=== PATIENT | female | born 1945 | race American Indian/Alaskan Native ===

== ENCOUNTER 2018-11-10 06:28 | Day surgery (SDC) | payer MEDICARE ==
[~2018-11-10 06:28] MED LIST: TETRACAINE 0.5% OS PRN
[2018-11-10] MEDS: MYDRIACYL OS SCH ×3 (07:00→07:10)
[2018-11-10] MEDS: AK-Dilate OS SCH ×3 (07:00→07:10)
[2018-11-10] MEDS: VIGAMOX OS SCH ×3 (07:00→07:10)
[2018-11-10] MEDS ORDERED: NACL BACTERIOSTATIC INFILTRATI ONE (07:18)
[2018-11-10] MEDS ORDERED: HumuLIN R IV ONE ×2 (07:29→08:00)
[2018-11-10] MEDS ORDERED: VERSED ONE (08:13)
[2018-11-10] MEDS ORDERED: SUBLIMAZE ONE (08:14)
--- NOTE | 2018-11-10 08:53 | Operative Report ---
Operative Report Operative Report: PATIENT'S NAME: DATE OF : DATE OF SURGERY: 11/10/2018 PREOPERATIVE DIAGNOSIS: Cataract left eye POSTOPERATIVE DIAGNOSIS: Same OPERATIVE PROCEDURE: Phacoemulsification with intraocular lens implantation, left eye SURGEON: Saskia Hitchcock M.D. TELEPHONE SEX WORKER SURGEON: Alec Lens: MX60E 25.0 D ANESTHESIA: Monitored anesthesia care in combination with topical and intracameral anesthesia because of the established specific risk of reflux, arrhythmias, or anxiety attacks associated with ocular manipulation, as well as the difficulty of the loft worker to manage such potentially catastrophic events while simultaneously attempting to complete the surgical procedure and was deemed necessary for the patient's safety to have an Conversion Worker present during the procedure whenever possible. An Conversion Worker was utilized to regulate the intravenous sedation of the patient so the patient was cooperative yet not asleep in order for the patient to successfully maintain fixation of the eye on the operating light of the microscope. COMPLICATIONS: No surgical complications No blood loss. ALLERGIES: Sulfa PROGNOSIS: Excellent INDICATIONS FOR SURGERY: The patient is undergoing surgery in the hopes of eliminating or improving these visual difficulties. PROCEDURE: After arriving at the surgery center, the patient was given topical anesthetic and dilating drops, as noted in the record. The patient was then taken into the operating room and given more anesthetic drops. The eyelids, lashes, and lid margins were scrubbed with Betadine solution, and the patient was draped. The Nurse Conversion Worker administered IV sedation and monitored the patient during the procedure. The eye was then fixated with a 0.12, and a stab incision was made in the peripheral clear cornea into the anterior chamber. This was made on my left side. Viscoelastic was next used to fill the anterior chamber. The eye was once again fixated with the 0.12 forceps and a keratome was used make an incision in clear cornea peripherally on my right hand side temporally. The capsule forceps were used to open the central anterior capsule and then make a continuous round capsulotomy. Hydrodissection was carried out utilizing a cannula and balanced salt solution to delineate the cortical material from the capsule and the nucleus from the cortical material. The phaco tip was introduced into the eye and used to remove the anterior cortical material in the area of the capsulotomy. Then the phaco tip was buried into the nucleus, and a chopping instrument was introduced into the eye and used to provide countertraction in the nucleus between this instrument and the phaco tip fracturing the nucleus. This procedure was repeated multiple times, providing multiple small segments of the lens, and then the phaco tip was used to remove each of these segments. An I/A tip was then used to remove the remaining cortex. The anterior chamber was refilled with viscoelastic. An one-piece, acrylic intraocular lens was then placed into an inserting cartridge. The tip of the inserting cartridge was introduced into the keratome incision and into the anterior chamber. The implant was gently advanced through the cartridge and into the eye, where it unfolded, and both haptics were placed in the capsular bag, where it centered nicely and appeared to be well fixated. After placement of the intraocular lens, the I~and~A handpiece was placed back into the eye and used to remove the viscoelastic, including viscoelastic that was behind the optic of the intraocular lens. The anterior chamber was then filled with balanced salt solution, and hydration of the wound was used to cause swelling of the wound and more appropriate watertight closure. When the wound was found to be firm, the patient was asked to comment on how bright the light was. If there was no light perception at all or if the light was substantially dimmer than during the rest of the surgery, the amount of fluid in the eye was decompressed to lower the intraocular pressure until the patient could see the bright light again. This was done to avoid any damage or decreased blood flow to the optic nerve. MEDICATIONS APPLIED AT END OF SURGERY: One drop of Pred Forte and Vigamox The patient was given a shield to wear at night and was instructed not to rub or push on the eye. DISCHARGE SUMMARY: The patient was released in stable condition. The patient and those with the patient were given a written sheet of postoperative instructions and counseling on any abnormal laboratory studies. The patient is to see us tomorrow for follow-up in the office and is to call immediately for any difficulties. Saskia Hitchcock M.D. Date
--- NOTE | 2018-11-10 08:54 | Short Stay Summary ---
Short Stay Documentation Date of service: 11/10/18 - History H&P: obtained from office - Allergies and Medications Current Medications: Allergies Sulfa (Sulfonamide Antibiotics) Allergy (Verified 11/03/18 16:00) RASH, BODY SWELLING Home Medications Medication Instructions Recorded Confirmed Last Taken Type ALBUTEROL NEB's [Proventil] 2.5 mg IH TID PRN 10/24/18 11/10/18 11/09/18 21:00 History Carvedilol 25 mg PO BID 10/24/18 11/10/18 11/09/18 21:00 History Digoxin [Digox] 125 mcg PO BID 10/24/18 11/10/18 11/10/18 06:00 History Fluticasone/Salmeterol [Advair 1 each IH DAILY 10/24/18 11/10/18 11/09/18 10:00 History 500-50 Diskus] ISOSORBIDE MONOnitrate [Imdur ER] 60 mg PO QDAY 10/24/18 11/10/18 11/09/18 09:00 History Ipratropium/Albuter (Nf) 2 puff IH QID 10/24/18 11/10/18 11/09/18 21:00 History [Combivent (Nf)] Levothyroxine Sodium 75 mcg PO DAILY 10/24/18 11/10/18 11/10/18 06:00 History Metformin HCl [Glucophage] 1,000 mg PO BID 10/24/18 11/10/18 11/09/18 21:00 History Rosuvastatin Calcium 10 mg PO DAILY 10/24/18 11/10/18 11/09/18 21:00 History Warfarin Sodium 10 mg PO DAILY 10/24/18 11/10/18 11/09/18 21:00 History cloNIDine [Catapres] 0.2 mg PO BID 10/24/18 11/10/18 11/09/18 21:00 History Active Medications Moxifloxacin HCl (Vigamox) 1 drops OS Q5M [facility] Last Admin: 11/10/18 07:00 Dose: 1 drops Documented by: Phenylephrine HCl (Ak-Dilate) 1 drops OS Q5M [facility] Last Admin: 11/10/18 07:00 Dose: 1 drops Documented by: Prednisolone Acetate (Pred Forte 1%) 1 drops OS ONCE NR Tetracaine HCl (Tetracaine 0.5%) 1 drops OS Q5M PRN PRN Reason: Anesthesia Last Admin: 11/10/18 07:00 Dose: 1 drops Documented by: Tropicamide (Mydriacyl) 1 drops OS Q5M [facility] Last Admin: 11/10/18 07:00 Dose: 1 drops Documented by: - Brief post op/procedure progress note Date of procedure: 11/10/18 Pre-op diagnosis: left cataract Post-op diagnosis: same Procedure: Phacoemulsification with intraocular lens insertion left eye Anesthesia: MAC, local Surgeon: NIKKIE DIALLO Estimated blood loss: none Pathology: none Condition: stable - Disposition Condition at discharge: Fair Disposition: DC-01 TO HOME OR SELFCARE - Discharge Diagnoses (1) Cortical age-related cataract of left eye Status: Resolved Short Stay Discharge Plan Follow up with: URIEL RAYMUNDO MD, PHD [Primary Care Provider] - 7 Days
[2018-11-10] MEDS ORDERED: PRED FORTE 1% OS NR (09:00)
--- NOTE | 2018-11-10 12:03 | Post Anesthesia Evaluation ---
- Post Anesthesia Evaluation Patient Participated: Yes Airway Patent: Yes Stable Respiratory Function: Yes Nausea/Vomiting: No Temp > 96.8F: Yes Pain Manageable: Yes Adequeate Hydration: Yes Anesthesia Complications: No
[2018-11-10 14:01] VITALS: BP 124/68
== END 2018-11-10 10:25 | disposition home or self-care (01) ==
LOC: OR 06:28
DX: E11.36 Type 2 diabetes mellitus with diabetic cataract (principal); H25.012 Cortical age-related cataract, left eye; I11.0 Hypertensive heart disease with heart failure; I50.9 Heart failure, unspecified; E78.00 Pure hypercholesterolemia, unspecified; J44.9 Chronic obstructive pulmonary disease, unspecified; M19.90 Unspecified osteoarthritis, unspecified site; E03.9 Hypothyroidism, unspecified; Z80.3 Family history of malignant neoplasm of breast; Z79.899 Other long term (current) drug therapy; Z79.01 Long term (current) use of anticoagulants; Z79.84 Long term (current) use of oral hypoglycemic drugs; Z87.891 Personal history of nicotine dependence; Z88.2 Allergy status to sulfonamides; Z90.49 Acquired absence of other specified parts of digestive tract; Z90.710 Acquired absence of both cervix and uterus; Z98.891 History of uterine scar from previous surgery
CPT/HCPCS: 66984; 82962; J2250; J3010; J1815; V2632

== ENCOUNTER 2018-11-24 05:45 | Day surgery (SDC) | payer MEDICARE ==
[2018-11-24] MEDS ORDERED: NACL BACTERIOSTATIC INFILTRATI ONE (05:56)
[2018-11-24] MEDS ORDERED: TETRACAINE 0.5% OU SCH (06:00)
[2018-11-24] MEDS: VIGAMOX OD SCH ×3 (06:45→06:55)
[2018-11-24] MEDS: AK-Dilate OD SCH ×3 (06:45→06:55)
[2018-11-24] MEDS: MYDRIACYL OD SCH ×3 (06:45→06:55)
--- NOTE | 2018-11-24 07:40 | Anesthesia Day of Surgery ---
Anesthesia Day of Surgery - Day of Surgery Patient Examined: Yes Patient H&P Reviewed: Yes Patient is NPO: Yes
--- NOTE | 2018-11-24 07:42 | Anesthesia Consultation ---
Anesthesia Consult and Med Hx Date of service: 11/24/18 - Airway Anesthetic Teeth Evaluation: Poor ROM Head & Neck: Adequate Mental/Hyoid Distance: Adequate Mallampati Class: Class II Intubation Access Assessment: Probably Good - Pre-Operative Health Status ASA Pre-Surgery Classification: ASA4 Proposed Anesthetic Plan: MAC - Pulmonary Hx Smoking: Yes (Former) COPD: Yes - Cardiovascular System Hx Hypertension: Yes (x 10 yrs, CHF, edema, high cholesterol) - Central Nervous System Hx Neuromuscular Disorder: Yes (arthritis) Hx Psychiatric Problems: No - Endocrine Hx Non-Insulin Dependent Diabetes: Yes Hx Hypothyroidism: Yes - Hematic Hx Sickle Cell Disease: Yes (Trait only) - Other Systems Hx Substance Use: No Hx Cancer: No
--- NOTE | 2018-11-24 08:32 | Operative Report ---
Operative Report Operative Report: PATIENT'S NAME: DATE OF : DATE OF SURGERY: 11/24/2018 PREOPERATIVE DIAGNOSIS: Cataract right eye POSTOPERATIVE DIAGNOSIS: Same OPERATIVE PROCEDURE: Phacoemulsification with intraocular lens implantation, right eye SURGEON: Saskia Hitchcock M.D. WATER RESOURCES PROGRAM DIRECTOR SURGEON: Alec Lens: MX60E 25.5 D ANESTHESIA: Monitored anesthesia care in combination with topical and intracameral anesthesia because of the established specific risk of reflux, arrhythmias, or anxiety attacks associated with ocular manipulation, as well as the difficulty of the web site project manager to manage such potentially catastrophic events while simultaneously attempting to complete the surgical procedure and was deemed necessary for the patient's safety to have an Stoner Hand present during the procedure whenever possible. An Stoner Hand was utilized to regulate the intravenous sedation of the patient so the patient was cooperative yet not asleep in order for the patient to successfully maintain fixation of the eye on the operating light of the microscope. COMPLICATIONS: No surgical complications No blood loss. ALLERGIES: Sulfa PROGNOSIS: Excellent INDICATIONS FOR SURGERY: The patient is undergoing surgery in the hopes of eliminating or improving these visual difficulties. PROCEDURE: After arriving at the surgery center, the patient was given topical anesthetic and dilating drops, as noted in the record. The patient was then taken into the operating room and given more anesthetic drops. The eyelids, lashes, and lid margins were scrubbed with Betadine solution, and the patient was draped. The Nurse Stoner Hand administered IV sedation and monitored the patient during the procedure. The eye was then fixated with a 0.12, and a stab incision was made in the peripheral clear cornea into the anterior chamber. This was made on my left side. Viscoelastic was next used to fill the anterior chamber. The eye was once again fixated with the 0.12 forceps and a keratome was used make an incision in clear cornea peripherally on my right hand side temporally. The capsule forceps were used to open the central anterior capsule and then make a continuous round capsulotomy. Hydrodissection was carried out utilizing a cannula and balanced salt solution to delineate the cortical material from the capsule and the nucleus from the cortical material. The phaco tip was introduced into the eye and used to remove the anterior cortical material in the area of the capsulotomy. Then the phaco tip was buried into the nucleus, and a chopping instrument was introduced into the eye and used to provide countertraction in the nucleus between this instrument and the phaco tip fracturing the nucleus. This procedure was repeated multiple times, providing multiple small segments of the lens, and then the phaco tip was used to remove each of these segments. An I/A tip was then used to remove the remaining cortex. The anterior chamber was refilled with viscoelastic. An one-piece, acrylic intraocular lens was then placed into an inserting cartridge. The tip of the inserting cartridge was introduced into the keratome incision and into the anterior chamber. The implant was gently advanced through the cartridge and into the eye, where it unfolded, and both haptics were placed in the capsular bag, where it centered nicely and appeared to be well fixated. After placement of the intraocular lens, the I~and~A handpiece was placed back into the eye and used to remove the viscoelastic, including viscoelastic that was behind the optic of the intraocular lens. The anterior chamber was then filled with balanced salt solution, and hydration of the wound was used to cause swelling of the wound and more appropriate watertight closure. When the wound was found to be firm, the patient was asked to comment on how bright the light was. If there was no light perception at all or if the light was substantially dimmer than during the rest of the surgery, the amount of fluid in the eye was decompressed to lower the intraocular pressure until the patient could see the bright light again. This was done to avoid any damage or decreased blood flow to the optic nerve. MEDICATIONS APPLIED AT END OF SURGERY: One drop of Pred Forte and Vigamox The patient was given a shield to wear at night and was instructed not to rub or push on the eye. DISCHARGE SUMMARY: The patient was released in stable condition. The patient and those with the patient were given a written sheet of postoperative instructions and counseling on any abnormal laboratory studies. The patient is to see us tomorrow for follow-up in the office and is to call immediately for any difficulties. Saskia Hitchcock M.D. Date
--- NOTE | 2018-11-24 08:33 | Short Stay Summary ---
Short Stay Documentation Date of service: 11/24/18 - History H&P: obtained from office - Allergies and Medications Current Medications: Allergies Sulfa (Sulfonamide Antibiotics) Allergy (Verified 11/03/18 16:00) RASH, BODY SWELLING Home Medications Medication Instructions Recorded Confirmed Last Taken Type ALBUTEROL NEB's [Proventil] 2.5 mg IH TID PRN 10/24/18 11/24/18 11/23/18 16:00 History Carvedilol 25 mg PO BID 10/24/18 11/24/18 11/23/18 09:00 History Digoxin [Digox] 125 mcg PO BID 10/24/18 11/24/18 11/24/18 05:00 History Fluticasone/Salmeterol [Advair 1 each IH DAILY 10/24/18 11/24/18 11/23/18 22:00 History 500-50 Diskus] ISOSORBIDE MONOnitrate [Imdur ER] 60 mg PO QDAY 10/24/18 11/24/18 11/23/18 09:00 History Ipratropium/Albuter (Nf) 2 puff IH QID 10/24/18 11/24/18 11/24/18 05:00 History [Combivent (Nf)] Levothyroxine Sodium 75 mcg PO DAILY 10/24/18 11/24/18 11/24/18 05:00 History Metformin HCl [Glucophage] 1,000 mg PO BID 10/24/18 11/24/18 11/23/18 22:00 History Rosuvastatin Calcium 10 mg PO DAILY 10/24/18 11/24/18 11/23/18 22:00 History Warfarin Sodium 10 mg PO DAILY 10/24/18 11/24/18 11/23/18 09:00 History cloNIDine [Catapres] 0.2 mg PO BID 10/24/18 11/24/18 11/23/18 22:00 History Active Medications Moxifloxacin HCl (Vigamox) 1 drops OD Q5MIN [facility] Stop: 11/26/18 06:01 Last Admin: 11/24/18 06:55 Dose: 1 drops Documented by: Phenylephrine HCl (Ak-Dilate) 1 drops OD Q5MIN [facility] Stop: 11/26/18 06:01 Last Admin: 11/24/18 06:55 Dose: 1 drops Documented by: Prednisolone Acetate (Pred Forte 1%) 1 drops OD ONCE ONE Stop: 11/24/18 08:32 Tetracaine HCl (Tetracaine 0.5%) 1 drops OU Q5M [facility] Stop: 11/24/18 12:00 Last Admin: 11/24/18 06:45 Dose: 1 drops Documented by: Tropicamide (Mydriacyl) 1 drops OD Q5MIN [facility] Stop: 11/26/18 06:01 Last Admin: 11/24/18 06:55 Dose: 1 drops Documented by: - Brief post op/procedure progress note Date of procedure: 11/24/18 Pre-op diagnosis: right cataract Post-op diagnosis: same Procedure: Phacoemulsification with intraocular lens insertion right eye Anesthesia: MAC, local Surgeon: NIKKIE DIALLO Estimated blood loss: none Pathology: none Condition: stable - Disposition Condition at discharge: Good Disposition: DC-01 TO HOME OR SELFCARE - Discharge Diagnoses (1) Cortical age-related cataract of right eye Status: Resolved Short Stay Discharge Plan Follow up with: URIEL RAYMUNDO MD, PHD [Primary Care Provider] - 7 Days
[2018-11-24] MEDS ORDERED: VERSED ONE (08:45)
[2018-11-24 09:09] VITALS: BP 124/72
[2018-11-24] MEDS ORDERED: PRED FORTE 1% OD ONE (09:30)
[2018-11-24] MEDS ORDERED: PRED FORTE 1% OD NR (10:00)
== END 2018-11-24 09:05 | disposition home or self-care (01) ==
LOC: OR 05:45
DX: E11.36 Type 2 diabetes mellitus with diabetic cataract (principal); H25.011 Cortical age-related cataract, right eye; I11.0 Hypertensive heart disease with heart failure; I50.9 Heart failure, unspecified; E78.00 Pure hypercholesterolemia, unspecified; J44.9 Chronic obstructive pulmonary disease, unspecified; M19.90 Unspecified osteoarthritis, unspecified site; E03.9 Hypothyroidism, unspecified; Z80.3 Family history of malignant neoplasm of breast; Z79.899 Other long term (current) drug therapy; Z88.2 Allergy status to sulfonamides; Z79.84 Long term (current) use of oral hypoglycemic drugs; Z87.891 Personal history of nicotine dependence; Z79.01 Long term (current) use of anticoagulants; Z90.49 Acquired absence of other specified parts of digestive tract; Z90.710 Acquired absence of both cervix and uterus; Z98.890 Other specified postprocedural states; Z98.891 History of uterine scar from previous surgery
CPT/HCPCS: 66984; 82962; J2250; V2632

== ENCOUNTER 2020-06-05 12:34 | Outpatient (CLI) | payer MEDICARE ==
--- NOTE | 2020-06-05 14:28 | XRay Report ---
CHEST 2 VIEWS INDICATION / CLINICAL INFORMATION: COUGH. COMPARISON: 12/13/2018 FINDINGS: SUPPORT DEVICES: None. HEART / MEDIASTINUM: No significant abnormality. LUNGS / PLEURA: Mild bibasilar airspace disease No pneumothorax. ADDITIONAL FINDINGS: No significant additional findings. IMPRESSION: Mild bibasilar airspace disease Signer Name: Nick Zhang MD FACR Signed: 06/05/2020 2:23 PM Workstation Name: [id number]
== END 2020-06-05 12:35 | disposition home or self-care (01) ==
LOC: SPVIMAG 12:34
PROVIDERS: ATTEND Urology
DX: J98.4 Other disorders of lung (principal)
CPT/HCPCS: 71046